=== PATIENT | female | born 1985 | race African-American/Black ===

== ENCOUNTER 2019-07-20 17:40 | Observation (INO) | payer OTHER | END 2019-07-20 22:00 | disposition home or self-care (01) | DRG 833 | LOC: LDRP 17:40 | PROVIDERS: ADMIT Specialist; ATTEND Specialist | DX: O46.93 Antepartum hemorrhage, unspecified, third trimester (principal); O26.893 Other specified pregnancy related conditions, third trimester; N89.8 Other specified noninflammatory disorders of vagina; O09.523 Supervision of elderly multigravida, third trimester; Z3A.30 30 weeks gestation of pregnancy | CPT/HCPCS: 59025; 76805; 81002; G0378 ==

== ENCOUNTER 2024-03-13 16:58 | Emergency (ER) | payer BC, OTHER ==
[~2024-03-13] VITALS: Ht 177.8 cm; Wt 117.1 kg
[2024-03-13 19:18] LABS: Basophils # (auto) 0 10 ^3/uL (0-0.2); Basophils % (auto) 0.4 % (0.0-2.0); Eosinophils # (auto) 0.1 10 ^3/uL (0-0.8); Eosinophils % (auto) 2.2 % (0.0-7.0); Hematocrit 40.1 % (36.0-46.0); Hemoglobin 13.4 g/dL (12.2-16.2); Lymphocytes # (auto) 1.3 10 ^3/uL (0.4-5.4); Lymphocytes % (auto) 24.5 % (10.0-50.0); Mean Corpuscular Hemoglobin 30.8 pg (28.0-32.0); Mean Corpuscular Hgb Conc. 33.5 g/dL (32.0-36.0); Mean Corpuscular Volume 91.9 fL (80.0-100.0); Monocytes # (auto) 0.5 10 ^3/uL (0-1.3); Monocytes % (auto) 9.9 % (0.0-12.0); Neutrophils # (auto) 3.2 10 ^3/uL (1.6-8.6); Nucleated Red Blood Cells % 0.2 %; Red Blood Cells 4.36 10^6/uL (4.0-5.20); Red Cell Distribution Width 13.7 % (11.8-14.3); White Blood Cell 5.1 10^3/uL (4.4-10.8)
[2024-03-13 19:41] LABS: INR 1.06 (0.9-1.15); Partial Thromboplastin Time 32.6 SEC (24.5-34.5); Prothrombin Time 11.2 sec (9.3-11.8)
[2024-03-13] MEDS ORDERED: PANT40TA2 PO (19:55)
[2024-03-13 20:05] LABS: Chloride 107 mmol/L (98-107); Potassium 4.3 mmol/L (3.5-5.1); Sodium 141 mmol/L (136-145)
[2024-03-13 20:06] LABS: Anion Gap 6 (5-15); Calcium 10.1 mg/dL (8.5-10.1); Carbon Dioxide 28 mmol/L (20-30)
[2024-03-13 20:11] LABS: Blood Urea Nitrogen 23 mg/dL (9-23); Glucose 94 mg/dL (74-106)
[2024-03-13 20:46] VITALS: BP 133/94; PULSE 78; RESP 18; TEMP 98.4; O2SAT 98
== END 2024-03-13 19:56 | disposition home or self-care (01) ==
LOC: ER 16:58
DX: K29.00 Acute gastritis without bleeding (principal); Z85.9 Personal history of malignant neoplasm, unspecified; Z79.899 Other long term (current) drug therapy
CPT/HCPCS: 36415; 74176; 80048; 85025; 85610; 85730